=== PATIENT | female | born 2005 | race Caucasian/White ===

== ENCOUNTER 2025-01-31 13:57 | Emergency (ER) | payer OTHER ==
[~2025-01-31] VITALS: Ht 149.9 cm; Wt 39.8 kg
[2025-01-31] MEDS ORDERED: NAPR-837 PO (15:17)
[2025-01-31] MEDS ORDERED: METH-1164 PO ×2 (15:17→16:06)
[2025-01-31 15:20] VITALS: BP 99/61; TEMP 97.4; O2SAT 98
[2025-01-31] MEDS ORDERED: NAPR-885 PO (16:06)
== END 2025-01-31 15:25 | disposition home or self-care (01) ==
LOC: M ED 13:57
DX: G44.201 Tension-type headache, unspecified, intractable (principal); Z88.0 Allergy status to penicillin; Z79.899 Other long term (current) drug therapy

== ENCOUNTER 2025-04-09 14:31 | Emergency (ER) | payer OTHER ==
[~2025-04-09] VITALS: Ht 149.9 cm; Wt 38.9 kg
[~2025-04-09 14:31] MED LIST: METH-1164 PO; NAPR-837 PO; NAPR-885 PO
[2025-04-09 14:32] VITALS: BP 115/67; TEMP 98.4; O2SAT 97
== END 2025-04-09 14:50 | disposition left against medical advice (07) ==
LOC: M ED 14:31
DX: Z53.21 Procedure and treatment not carried out due to patient leaving prior to being seen by health care provider (principal)

== ENCOUNTER → 2025-04-30 | Outpatient (REF) | payer OTHER | LOC: M LAB REF 17:00 | PROVIDERS: ATTEND Family Medicine | DX: N76.0 Acute vaginitis (principal); R30.0 Dysuria ==

== ENCOUNTER 2025-05-12 01:11 | Emergency (ER) | payer OTHER ==
[~2025-05-12] VITALS: Ht 149.9 cm; Wt 39.9 kg
[2025-05-12 02:40] LABS: BASO # 0.1 10^3/uL (0.0-0.2); BASO % 0.6 % (0.0-1.0); EOS # 0.1 10^3/uL (0.0-0.5); EOS % 0.6 % (0.0-3.0); LYMPH # 2.3 10^3/uL (1.5-5.0); LYMPH % 25.9 % (24.0-44.0); MONO # 0.6 10^3/uL (0.0-0.8); MONO % 6.9 % (2.0-8.0); NEUTROPHILS # 5.9 10^3/uL (1.5-8.5); NEUTROPHILS % 65.8 % (36.0-66.0); PLATELET COUNT, AUTOMATED 352 10^3/uL (150-450)
[2025-05-12 02:59] LABS: CALCIUM LEVEL 9.6 MG/DL (8.5-10.1); CARBON DIOXIDE LEVEL 26 MMOL/L (20-31); CHLORIDE LEVEL 103 MMOL/L (98-107); CREATININE FOR GFR 0.57 MG/DL (0.55-1.30); GLOMERULAR FILTRATION RATE > 90.0 (>60); POTASSIUM SERUM 3.9 MMOL/L (3.5-5.1); SODIUM LEVEL 137 MMOL/L (136-145)
[2025-05-12] MEDS ORDERED: IRONTAB3 PO (03:51)
[2025-05-12] MEDS ORDERED: [UNRECOGNIZED DRUG - OTHER] PO (03:51)
[2025-05-12] MEDS ORDERED: D 50CAP3 PO (03:51)
[2025-05-12] MEDS ORDERED: PROG1CAP9 PR (03:51)
[2025-05-12 07:37] LABS: KETONE, URINE AUTO RFX TRACE mg/dL (NEGATIVE); LEUKOCYTE ESTERASE UR AUTO RFX NEGATIVE (NEGATIVE); MUCUS, URINE RFX SMALL (NEGATIVE); NITRITE, URINE AUTO RFX NEGATIVE (NEGATIVE); RBC, URINE AUTO RFX 16 /HPF (0-3); SQUAM EPITHELIAL CELL UR AURFX 5 /HPF (0-6); WBC, URINE AUTO RFX 5 /HPF (0-3)
[2025-05-12 08:17] VITALS: BP 98/70; TEMP 97.2; O2SAT 98
== END 2025-05-12 08:18 | disposition home or self-care (01) ==
LOC: M ED 01:11
DX: O20.0 Threatened abortion (principal); Z3A.01 Less than 8 weeks gestation of pregnancy; Z88.0 Allergy status to penicillin; Z79.899 Other long term (current) drug therapy

== ENCOUNTER → 2025-05-30 | Outpatient (CLI) | payer OTHER ==
[~2025-05-30] MED LIST changes: +D 50CAP3 PO; +IRONTAB3 PO; +PROG1CAP9 PR; +[UNRECOGNIZED DRUG - OTHER] PO
[2025-05-30 13:20] LABS: PLATELET COUNT, AUTOMATED 344 10^3/uL (150-450)
[2025-05-30 13:57] LABS: HIV 1&2 SCREEN NEGATIVE (NEGATIVE)
[2025-05-30 14:05] LABS: HEPATITIS C VIRUS ABY INDEX < 0.02 INDEX (<0.8)
[2025-05-30 14:23] LABS: Trichomonas vaginalis (AMP) NOT DETECTED (NEGATIVE)
[2025-05-30 14:47] LABS: GC DNA AMPLIFICATION NEGATIVE (NEGATIVE)
== END ==
LOC: M PLALAB 10:29
PROVIDERS: ATTEND Advanced Practice Midwife
DX: Z34.81 Encounter for supervision of other normal pregnancy, first trimester (principal)